=== PATIENT | male | born 1970 | race Caucasian/White ===

== ENCOUNTER → 2016-12-05 | Outpatient (CLI) | payer MEDICARE, OTHER ==
[~2016-12-05] MED LIST: ALPRAZOLAM; AMOXIL500 M1 PO; ASPIRIN ENTERI325 M1 PO; BACTRIM DS TABL1 TA1 PO; CLEOCIN PO; COUMADIN10 MG PO; DAKIN'S MODIF1000 ML EXT; DIAZEPAM2 MG PO; DOXYCYCLINE HY100 M3 PO; NEURONTIN300 MG PO; NO MEDICATIONS; OXYCODON HCL-1 UDTAB PO; OXYCODONE15 M1 PO; OXYCONTIN PO; OXYCONTIN40 MG PO; OXYCONTIN80 MG PO; PERCOCET 10/3251 TAB PO; PERCOCET10 PO; PRINIVIL20 M1 PO; ROBAXIN500 MG PO; SANTYL15 G1 TP; VICODIN 5/1 TAB 5/50 PO; VOLTAREN75 MG PO
== END | disposition home or self-care (01) ==
LOC: CECH 13:45
DX: Z01.810 Encounter for preprocedural cardiovascular examination (principal); T84.50XD Infection and inflammatory reaction due to unspecified internal joint prosthesis, subsequent encounter; R00.2 Palpitations
CPT/HCPCS: 93306

== ENCOUNTER 2016-12-30 21:33 | Inpatient (IN) | payer MEDICARE, OTHER ==
[~2016-12-30] VITALS: Ht 175.3 cm; Wt 73.8 kg
--- NOTE | ~2016-12-30 | XA30 ---
[facility] A Service of [facility] & [facility] RADIOLOGY TEXT RESULTS PATIENT: YOU BLAS LOCATION: [facility] 558- : 71 UNIT #: [id number] AGE: [address]: KHLOE RIVERA V SEX: M ORDER DR: [id number] [facility] [address] [place], [place] [address] [id number] I MR#: [id number] Acc #: [id number] NAME: YOU BLAS : 1970 SEX: M STUDY DATE/TIME: 01/01/2017 12:19 UNIT: [facility] ROOM: [facility] STUDY DESCRIPTION: XA Arthrocentesis Major Joint Attending Physician: Khloe Rivera M.D. Ordering Physician: John Todd M.D. Primary Care Physician: Margarito Mitchell M.D. MEDICAL IMAGING REPORT This report is preliminary unless electronic signature is present EXAM Right hip aspiration. INDICATION Increasing right hip pain and not feeling well for 1-2 days. Patient also has an elevated white count. PROCEDURE The risks, benefits, and alternatives to the procedure were explained to the patient and signed, informed consent was obtained. He was placed supine on the angiographic table and was prepped and draped in the usual sterile fashion. Time-out was performed as per protocol. Skin and subcutaneous tissues were anesthetized with buffered lidocaine, and a 20-gauge spinal needle was advanced towards the stem of the hardware. Its position was confirmed with a radiographic image. I was able to aspirate about 1 mL of somewhat gelatinous blood-tinged material which will be sent to the lab for Gram stain, culture, and sensitivity. Total fluoroscopy time 0.4 minutes and a single fluoroscopic image was obtained. IMPRESSION Technically successful fluoroscopically-guided right hip aspiration. As noted above, fluoroscopy was used during the procedure and permanent images were saved. Dictated by... Chelle Mcdonald M.D. THIS IS AN ELECTRONICALLY VERIFIED REPORT Chelle Mcdonald M.D. at 01/02/2017 4:56 PM [facility] A Service of [facility] & [facility] RADIOLOGY TEXT RESULTS PATIENT: YOU BLAS LOCATION: [facility] 558-01 : 71 UNIT #: [id number] AGE: [address]: KHLOE RIVERA V SEX: M ORDER DR: TD: 01/02/2017 12:02 JOB #: [id number] MEDICAL IMAGING REPORT Page 1 of 1 COPY
--- NOTE | ~2016-12-30 | CT2 ---
[facility] A Service of [facility] RADIOLOGY TEXT RESULTS PATIENT: YOU BLAS LOCATION: [facility] 558-01 : 71 UNIT #: [id number] AGE: [address]: VERENICE RIVERAUJ V SEX: M ORDER DR: [id number] [facility] [address] [place], [place] [address] [id number] I MR#: [id number] Acc #: [id number] NAME: YOU BLAS : 1970 SEX: M STUDY DATE/TIME: 12/31/2016 00:33 UNIT: [facility] ROOM: [facility] STUDY DESCRIPTION: CT Abd and Pelv W Cont Attending Physician: Salome Bruce M.D. Ordering Physician: Michael Leija D.O. Primary Care Physician: Margarito Mitchell M.D. MEDICAL IMAGING REPORT This report is preliminary unless electronic signature is present EXAM CT abdomen and pelvis 12/31 00:33 INDICATION Abdominal pain and cramping with hypotension after hip surgery yesterday. TECHNIQUE Axial images were obtained through the abdomen and pelvis following IV contrast administration. Multiplanar reformats were obtained. No comparison. This CT examination was performed with one or more of the following radiation dose reduction techniques: automatic exposure control, adjustment of mA and/or kV according to patient size, and iterative reconstruction. FINDINGS ABDOMEN: Lung bases are clear. Gallbladder contracted. No biliary obstruction. Solid abdominal organs are normal. There is atherosclerotic disease. There is focal ectasia of the lower abdominal aorta measuring 2.5 cm. Unopacified GI tract is normal. No free fluid is seen. PELVIS: The appendix is surgically absent. Remainder of the unopacified GI tract is normal. Bladder is grossly normal. There is fairly extensive streak artifact from the patient's right hip arthroplasty. No definite free fluid is seen in the pelvis. There is degenerative disease of the lumbar spine with broad-based disc bulges at L3-4, L4-5, and L5-S1. These would be better assessed 12 with MRI if indicated. There is right external iliac adenopathy measuring 2.1 x 1.5 cm. There is right inguinal adenopathy measuring 2.5 x 1.2 cm. Additional prominent right inguinal nodes are present as well. These findings are nonspecific and may be related to reactive change from recent surgery. There are some mildly prominent right side common iliac nodes as well. IMPRESSION [facility] A Service of [facility] & [facility] RADIOLOGY TEXT RESULTS PATIENT: YOU BLAS LOCATION: [place] [address] : 72 UNIT #: [id number] AGE: [address]: KHLOE RIVERA V SEX: M ORDER DR: 1. No free fluid in the abdomen or pelvis. 2. Appendectomy. Otherwise normal unopacified GI tract. 3. Infrarenal abdominal aortic ectasia at 2.5 cm. There is atherosclerotic disease. 4. Right hip arthroplasty. Streak artifact obscures detail around the arthroplasty and in the lower pelvis. 5. There is right inguinal and right external iliac chain adenopathy. There is also borderline right common iliac chain adenopathy. This is of unknown etiology as no other adenopathy is seen in the abdomen or pelvis. This could be reactive related to recent surgery. Consider followup CT pelvis with contrast in the next 2-3 months for further evaluation. Dictated by... Jack Solis Jr., M.D. THIS IS AN ELECTRONICALLY VERIFIED REPORT Jack Solis Jr., M.D. at 01/01/2017 4:22 AM MARIO/hector TD: 12/31/2016 07:18 JOB #: [id number] MEDICAL IMAGING REPORT Page 1 of 1 COPY
--- NOTE | ~2016-12-30 | CR151 ---
[facility] A Service of [facility] & [facility] RADIOLOGY TEXT RESULTS PATIENT: YOU BLAS LOCATION: [facility] 558-01 : 71 UNIT #: [id number] AGE: [address]: VERENICE RIVERAUJ V SEX: M ORDER DR: [id number] [facility] [address] [place], [place] [address] [id number] I MR#: [id number] Acc #: [id number] NAME: YOU BLAS : 1970 SEX: M STUDY DATE/TIME: 12/30/2016 23:34 UNIT: [facility] ROOM: [facility] STUDY DESCRIPTION: CR Hip Min 2 Views Rt Attending Physician: Salome Bruce M.D. Ordering Physician: Michael Leija D.O. Primary Care Physician: Margarito Mitchell M.D. MEDICAL IMAGING REPORT This report is preliminary unless electronic signature is present EXAM Right hip 12/30 at 23:34 INDICATION Hip pain and soft tissue swelling. Hip arthroplasty 12/15/2016. Symptoms started today. FINDINGS AP pelvis was obtained in addition to a frog-leg left hip. There is a well-positioned right hip arthroplasty. Cerclage wires are noted in the proximal femur. Medially displaced well corticated bone fragments, presumably from prior injury, are unchanged from radiographs of 04/17/2016. No acute fractures are seen. There is atherosclerotic disease. There is osteoarthritis of the left hip. IMPRESSION Well-positioned right hip arthroplasty. No acute findings are identified. Dictated by... Jack Solis Jr., M.D. THIS IS AN ELECTRONICALLY VERIFIED REPORT Jack Solis Jr., M.D. at 01/01/2017 4:21 AM MARIO/hector TD: 12/31/2016 06:40 JOB #: [id number] MEDICAL IMAGING REPORT Page 1 of 1 COPY
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
--- NOTE | ~2016-12-30 | CR72 ---
[facility] A Service of [facility] & [facility] RADIOLOGY TEXT RESULTS PATIENT: YOU BLAS LOCATION: [facility] 55- : 71 UNIT #: [id number] AGE: [address]: VERENICE RIVERAUJ V SEX: M ORDER DR: [id number] [facility] [address] [place], [place] [address] [id number] I MR#: [id number] Acc #: [id number] NAME: YOU BLSA : 1970 SEX: M STUDY DATE/TIME: 12/30/2016 22:15 UNIT: [facility] ROOM: [facility] STUDY DESCRIPTION: CR Chest Single View Portable Attending Physician: Salome Bruce M.D. Ordering Physician: Michael Leija D.O. Primary Care Physician: Margarito Mitchell M.D. MEDICAL IMAGING REPORT This report is preliminary unless electronic signature is present EXAM Portable chest HISTORY Shortness of air and cramping and hypotension today. FINDINGS A single AP portable view of the chest shows both lungs to be clear. The heart is normal in size. The mediastinal contour is normal. No significant bone abnormalities are seen. IMPRESSION Normal portable chest. Dictated by... Angel Benedict M.D. THIS IS AN ELECTRONICALLY VERIFIED REPORT Angel Benedict M.D. at 12/31/2016 6:27 PM QUIQUE/jose ramon TD: 12/31/2016 04:17 JOB #: [id number] MEDICAL IMAGING REPORT Page 1 of 1 COPY
--- NOTE | ~2016-12-30 | EKG ---
PATIENT: YOU BLAS UNIT #: [id number] Ventricular Rate: 96 BPM Atrial Rate: 96 BPM P-R Interval: 164 ms QRS Duration: 84 ms Q-T Interval: 364 ms QTC Calculation(Bezet): 459 ms P [place]: 77 degrees Calculated R [place]: 79 degrees Calculated T [place]: 65 degrees Diagnosis Line: Normal sinus rhythm Diagnosis Line: Normal ECG Diagnosis Line: When compared with ECG of 18-APR-2016 11:22, Diagnosis Line: No significant change was found Diagnosis Line: Confirmed by ALISON AYALA MD ([id number]) on Diagnosis Line: 12/31/2016 10:35:34 PM INTERPRETING MD: JOSEF
[~2016-12-30 21:33] MED LIST changes: -ASPIRIN ENTERI325 M1 PO; -DIAZEPAM2 MG PO; -DOXYCYCLINE HY100 M3 PO; -PRINIVIL20 M1 PO
[2016-12-30 22:35] LABS: POC - CKMB 2.3 ng/mL (0.0-7.9); POC - TROPONIN <0.05 ng/mL (<=0.05)
[2016-12-30 22:49] LABS: BASOPHIL# 0.1 X10e3 (0-0.3); BASOPHIL% 0.5 % (0-2.5); EOSINOPHIL# 0.1 X10e3 (0-0.7); EOSINOPHIL% 0.6 % (0.0-7.0); HEMATOCRIT 35.3 % (38.0-50.0); HEMOGLOBIN 11.6 gm/dL (13.0-16.0); LYMPHOCYTE# 2.2 X10e3 (1.0-3.5); LYMPHOCYTE% 18.1 % (17.0-45.0); MEAN CELL VOLUME 95.8 FL (83-96); MEAN CORPUSCULAR HEMOGLOBIN 31.5 PG (28-34); MEAN CORPUSCULAR HGB CONC 32.8 g/dL (30-36); MEAN PLATELET VOLUME 8.4 FL (6.5-11.5); MONOCYTE# 1.2 X10e3 (0-1.0); MONOCYTE% 9.3 % (3.0-12.0); NEUTROPHIL# 8.9 X10e3 (1.5-7.1); NEUTROPHIL% 71.5 % (40-75); PLATELET COUNT 302 X10e3 (140-420); RED BLOOD COUNT 3.68 X10e (3.90-5.60); WHITE BLOOD COUNT 12.5 X10e3 (4.0-10.5)
[2016-12-30 22:52] LABS: DIFF IND NO
[2016-12-30 23:05] LABS: PARTIAL THROMBOPLASTIN TIME 31.1 SECONDS (23.5-31.3)
[2016-12-30 23:07] LABS: PROTHROMBIN TIME (PATIENT) 10.5 SECONDS (10.0-11.7)
[2016-12-30 23:12] LABS: ALBUMIN SERUM 3.4 g/dL (3.5-5.0); BILIRUBIN, DIRECT 0.1 mg/dL (0.0-0.2); BILIRUBIN,INDIRECT 0.6 mg/dL (0.0-0.9); BILIRUBIN,TOTAL 0.7 mg/dL (0.2-2.0); BUN/CREATININE RATIO 24.28; CALCIUM SERUM 8.6 mg/dL (8.4-10.2); CREATININE SERUM 1.4 mg/dL (0.6-1.4); GLOM FILT RATE Estimated 60.3 mL/min (>60); POTASSIUM 4.4 mmol/L (3.5-5.1); PROTEIN TOTAL SERUM 7.6 g/dL (6.0-8.3)
[2016-12-31 00:15] LABS: URINE SOURCE CLEAN CATCH
[2016-12-31 00:56] LABS: URINE APPEARANCE CLEAR; URINE BILIRUBIN NEG (NEG); URINE BLOOD NEG (NEG); URINE COLOR DK YELLOW; URINE GLUCOSE NEG (NEG); URINE KETONE NEG (NEG); URINE LEUKOCYTE ESTERASE NEG (NEG); URINE NITRATE NEG (NEG); URINE PROTEIN NEG (NEG); URINE SPECIFIC GRAVITY 1.024 (1.003-1.035)
[2016-12-31 01:01] LABS: CULTURE INDICATED? NO
[2016-12-31] MEDS ORDERED: DIAZEPAM2 MG PO (01:02)
[2016-12-31] MEDS ORDERED: ASPIRIN ENTERI325 M1 PO (01:03)
[2016-12-31] MEDS ORDERED: PERCOCET10 PO (01:03)
[2016-12-31] MEDS ORDERED: PRINIVIL20 M1 PO (01:03)
[2016-12-31 05:49] LABS: HEMATOCRIT 32.4 % (38.0-50.0); HEMOGLOBIN 10.5 gm/dL (13.0-16.0); MEAN CELL VOLUME 96.9 FL (83-96); MEAN CORPUSCULAR HEMOGLOBIN 31.4 PG (28-34); MEAN CORPUSCULAR HGB CONC 32.4 g/dL (30-36); MEAN PLATELET VOLUME 8.1 FL (6.5-11.5); RED BLOOD COUNT 3.34 X10e (3.90-5.60); RED CELL DISTRIBUTION WIDTH 14.8 % (11.0-15.5); WHITE BLOOD COUNT 11.3 X10e3 (4.0-10.5)
[2016-12-31 06:11] LABS: CALCIUM SERUM 8.4 mg/dL (8.4-10.2); GLOM FILT RATE Estimated 90.5 mL/min (>60); POTASSIUM 4.5 mmol/L (3.5-5.1)
[2017-01-02] MEDS ORDERED: DOXYCYCLINE HY100 M3 PO (16:50)
== END 2017-01-02 18:06 | disposition home or self-care (01) | DRG 641 ==
LOC: CED 21:33 → CEDOF 12-31 02:00 → CED 12-31 02:05 → CEDOF 12-31 03:49 → C5B 12-31 03:49
PROVIDERS: Emergency Medicine; Internal Medicine
PROC: 0S993ZZ Drainage of Right Hip Joint, Percutaneous Approach (ICD-10-PCS; principal; 2017-01-01)
DX: E86.0 Dehydration (principal); N17.9 Acute kidney failure, unspecified; I95.2 Hypotension due to drugs; T46.5X5A Adverse effect of other antihypertensive drugs, initial encounter; Y92.9 Unspecified place or not applicable; G89.29 Other chronic pain; F17.210 Nicotine dependence, cigarettes, uncomplicated; I10 Essential (primary) hypertension; R25.2 Cramp and spasm; R59.0 Localized enlarged lymph nodes; Z96.641 Presence of right artificial hip joint; Z86.14 Personal history of Methicillin resistant Staphylococcus aureus infection; Z82.49 Family history of ischemic heart disease and other diseases of the circulatory system
CPT/HCPCS: 36415; 71010; 73502; 74177; 77002; 80048; 80076; 81003; 82550; 82553; 83605; 83690; 84484; 85025; 85027; 85610; 85652; 85730; 86140; 86850; 86900; 86901; 87040; 87070; 87205; 93005; 96361; 96374; 96375; 99285; J1650; J2270; J2405; J2543; J3370; Q9967

== ENCOUNTER 2017-01-18 01:29 | Emergency (ER) | payer MEDICARE, OTHER ==
--- NOTE | ~2017-01-18 | CR145 ---
[facility] A Service of [facility] & [facility] RADIOLOGY TEXT RESULTS PATIENT: YOU BLAS LOCATION: [facility] : 71 UNIT #: [id number] AGE: [address]: Jack Arnold MD SEX: M ORDER DR: [id number] [facility] [address] [place], [place] [address] [id number] E MR#: [id number] Acc #: [id number] NAME: YOU BLAS : 1970 SEX: M STUDY DATE/TIME: 01/18/2017 3:52 UNIT: [facility] ROOM: STUDY DESCRIPTION: CR Hip 1 View Rt Attending Physician: Jack Arnold M.D. Ordering Physician: Jack Arnold M.D. Primary Care Physician: Margarito Mitchell M.D. MEDICAL IMAGING REPORT This report is preliminary unless electronic signature is present EXAM Right hip series INDICATION Status post reduction of right hip dislocation today. PROCEDURE Frontal view of the pelvis. COMPARISON 12/30/2016 and a right hip series earlier today. FINDINGS Successful reduction of the dislocation. No acute fracture components are seen. IMPRESSION Successful reduction of the dislocation. Dictated by... Leonardo Hayes M.D. THIS IS AN ELECTRONICALLY VERIFIED REPORT Leonardo Hayes M.D. at 01/19/2017 10:04 PM ANAM/hector TD: 01/18/2017 14:17 JOB #: [id number] MEDICAL IMAGING REPORT Page 1 of 1 COPY
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
[~2017-01-18 01:29] MED LIST changes: +ASPIRIN ENTERI325 M1 PO; +DIAZEPAM2 MG PO; +DOXYCYCLINE HY100 M3 PO; +PRINIVIL20 M1 PO
== END 2017-01-18 04:41 | disposition home or self-care (01) ==
LOC: CED 01:29
DX: S73.004A Unspecified dislocation of right hip, initial encounter (principal); F17.200 Nicotine dependence, unspecified, uncomplicated; Z91.018 Allergy to other foods; X50.0XXA Overexertion from strenuous movement or load, initial encounter
CPT/HCPCS: 27265; 73501; 73502; 96372; 99152; 99283; J1885

== ENCOUNTER 2017-01-24 02:45 | Emergency (ER) | payer MEDICARE, OTHER ==
[~2017-01-24] VITALS: Ht 177.8 cm; Wt 78.0 kg
--- NOTE | ~2017-01-24 | CR145 ---
[facility] A Service of [facility] & [facility] RADIOLOGY TEXT RESULTS PATIENT: YOU BLAS LOCATION: [facility] : 71 UNIT #: [id number] AGE: [address]: Luigi Devi MD SEX: M ORDER DR: [id number] [facility] [address] [place], [place] [address] [id number] E MR#: [id number] Acc #: [id number] NAME: YOU BLAS : 1970 SEX: M STUDY DATE/TIME: 01/24/2017 04:12 UNIT: [facility] ROOM: STUDY DESCRIPTION: CR Hip 1 View Rt Attending Physician: Luigi Devi M.D. Ordering Physician: Luigi Devi M.D. Primary Care Physician: Margraito Mitchell M.D. MEDICAL IMAGING REPORT This report is preliminary unless electronic signature is present EXAM Right hip 01/24/2017 at 04:12 INDICATIONS Status post reduction of dislocation this morning. FINDINGS AP view of the pelvis is compared with earlier this morning. Right hip arthroplasty now has normal anatomic alignment. Dislocation has been reduced. IMPRESSION Anatomic alignment of the right hip prosthesis has been restored. Dictated by... Jack Solis Jr., M.D. THIS IS AN ELECTRONICALLY VERIFIED REPORT Jack Solis Jr., M.D. at 01/25/2017 4:16 AM MARIO/nancy TD: 01/25/2017 00:14 JOB #: [id number] MEDICAL IMAGING REPORT Page 1 of 1 COPY
--- NOTE | ~2017-01-24 | CR151 ---
[facility] A Service of [facility] & [facility] RADIOLOGY TEXT RESULTS PATIENT: YOU BLAS LOCATION: [facility] : 72 UNIT #: [id number] AGE: [address]: Luigi Devi MD SEX: M ORDER DR: [id number] [facility] [address] [place], [place] [address] [id number] E MR#: [id number] Acc #: [id number] NAME: YOU BLAS : 1970 SEX: M STUDY DATE/TIME: 01/24/2017 03:36 UNIT: [facility] ROOM: STUDY DESCRIPTION: CR Hip Min 2 Views Rt Attending Physician: Luigi Devi M.D. Ordering Physician: Luigi Devi M.D. Primary Care Physician: Margarito Mitchell M.D. MEDICAL IMAGING REPORT This report is preliminary unless electronic signature is present EXAM Right hip and pelvis 01/24/2017 at 03:36 INDICATIONS Hip pain after a fall today. FINDINGS AP view of the pelvis was obtained in addition to 2 views of the right hip. Comparison made with 01/18/2017. Patient has a right hip arthroplasty. Redemonstrated is superior dislocation of the femoral component. No acute fractures are seen. Degenerative disease in the left hip is stable. IMPRESSION Superior dislocation of a right hip arthroplasty. No acute fracture. Dictated by... Jack Solis Jr., M.D. THIS IS AN ELECTRONICALLY VERIFIED REPORT Jack Solis Jr., M.D. at 01/25/2017 4:15 AM MARIO/nancy TD: 01/24/2017 23:59 JOB #: [id number] MEDICAL IMAGING REPORT Page 1 of 1 COPY
== END 2017-01-24 05:05 | disposition home or self-care (01) ==
LOC: CED 02:45
DX: S73.004A Unspecified dislocation of right hip, initial encounter (principal); F17.200 Nicotine dependence, unspecified, uncomplicated; Z91.018 Allergy to other foods; X58.XXXA Exposure to other specified factors, initial encounter; Y92.009 Unspecified place in unspecified non-institutional (private) residence as the place of occurrence of the external cause
CPT/HCPCS: 27265; 73501; 73502; 96374; 99152; 99283; J1170; J3010